=== PATIENT | female | born 1985 | race Caucasian/White ===

== ENCOUNTER 2016-11-01 04:37 | Emergency (ER) | payer OTHER | END 2016-11-01 05:51 | disposition home or self-care (01) | LOC: CED 04:37 | DX: N75.1 Abscess of Bartholin's gland (principal); E11.9 Type 2 diabetes mellitus without complications; Z90.49 Acquired absence of other specified parts of digestive tract | CPT/HCPCS: 84703; 99283 ==

== ENCOUNTER 2016-11-01 06:43 | Emergency (ER) | payer OTHER ==
--- NOTE | ~2016-11-01 | EKG ---
PATIENT: MARIANELA BERNARD UNIT #: [id number] Ventricular Rate: 70 BPM Atrial Rate: 70 BPM P-R Interval: 134 ms QRS Duration: 76 ms Q-T Interval: 394 ms QTC Calculation(Bezet): 425 ms P [place]: 14 degrees Calculated R [place]: 73 degrees Calculated T [place]: 33 degrees Diagnosis Line: Normal sinus rhythm Diagnosis Line: Normal ECG Diagnosis Line: No previous ECGs available Diagnosis Line: Confirmed by YASH TANG MD ([id number]) on Diagnosis Line: 11/01/2016 2:46:29 PM INTERPRETING MD: CLYDE FITZGERALD
[2016-11-01 07:54] LABS: BASOPHIL# 0.1 X10e3 (0-0.3); BASOPHIL% 0.5 % (0-2.5); EOSINOPHIL# 0.4 X10e3 (0-0.7); EOSINOPHIL% 2.7 % (0.0-7.0); HEMATOCRIT 38.6 % (35.0-45.0); HEMOGLOBIN 12.9 gm/dL (12.0-16.0); LYMPHOCYTE# 2.5 X10e3 (1.0-3.5); LYMPHOCYTE% 17.7 % (17.0-45.0); MEAN CELL VOLUME 88.5 FL (83-96); MEAN CORPUSCULAR HEMOGLOBIN 29.7 PG (28-34); MEAN CORPUSCULAR HGB CONC 33.5 g/dL (30-36); MEAN PLATELET VOLUME 7.9 FL (6.5-11.5); MONOCYTE% 7.1 % (3.0-12.0); PLATELET COUNT 312 X10e3 (140-420); RED BLOOD COUNT 4.36 X10e (3.90-5.30); RED CELL DISTRIBUTION WIDTH 16.3 % (11.0-15.5); WHITE BLOOD COUNT 13.8 X10e3 (4.0-10.5)
[2016-11-01 07:56] LABS: DIFF IND NO
[2016-11-01 08:33] LABS: URINE SOURCE CLEAN CATCH
[2016-11-01 08:38] LABS: ALBUMIN SERUM 3.9 g/dL (3.5-5.0); ALKALINE PHOSPHATASE 58 U/L (32-92); ALT (SGPT) 15 U/L (10-40); AST (SGOT) 18 U/L (10-42); BILIRUBIN,TOTAL 0.6 mg/dL (0.2-2.0); BLOOD UREA NITROGEN 15 mg/dL (9-23); CALCIUM SERUM 8.7 mg/dL (8.4-10.2); CARBON DIOXIDE 26 mmol/L (22-31); CHLORIDE 108 mmol/L (100-111); CREATININE SERUM 0.6 mg/dL (0.6-1.4); GLOM FILT RATE Estimated 120.6 mL/min (>60); GLUCOSE FASTING 93 mg/dL (70-110); LIPASE 25 U/L (22-51); POTASSIUM 3.8 mmol/L (3.5-5.1); SODIUM 139 mmol/L (135-145)
[2016-11-01 08:40] LABS: URINE APPEARANCE CLEAR; URINE BILIRUBIN NEG (NEG); URINE BLOOD 1+ (NEG); URINE COLOR YELLOW; URINE GLUCOSE NEG (NEG); URINE KETONE NEG (NEG); URINE LEUKOCYTE ESTERASE 2+ (NEG); URINE NITRATE NEG (NEG); URINE PH 7.5 (5-8); URINE PROTEIN NEG (NEG); URINE SPECIFIC GRAVITY 1.014 (1.003-1.035); URINE UROBILINOGEN 0.2 MG/DL (NEG)
[2016-11-01 08:42] LABS: CULTURE INDICATED? YES; URINE BACTERIA AUWI NEG (NEGATIVE); URINE SQUAMOUS EPITHELIAL CELL OCC /[HPF]
[2016-11-01 08:43] LABS: BILIRUBIN, DIRECT <0.1 mg/dL (0.0-0.2); BILIRUBIN,INDIRECT 0.5 mg/dL (0.0-0.9)
== END 2016-11-01 09:45 | disposition home or self-care (01) ==
LOC: CED 06:43
PROVIDERS: Emergency Medicine
DX: N30.00 Acute cystitis without hematuria (principal); F17.200 Nicotine dependence, unspecified, uncomplicated; Z90.49 Acquired absence of other specified parts of digestive tract
CPT/HCPCS: 36415; 80048; 80076; 81003; 83690; 84703; 85025; 87086; 87088; 87186; 93005; 96361; 96374; 96375; 99284; J2405